=== PATIENT | female | born 1965 | race Caucasian/White ===

== ENCOUNTER 2024-04-02 10:34 | Observation (INO) ==
[2024-04-02 12:23] LABS: ABS Eosinophils 0.3 10^3/uL (0.0-0.5); ABS Monocytes 0.4 10^3/uL (0.0-0.9); ABS Neutrophils 4.8 10^3/uL (1.5-7.6); ABS Nucleated RBC 0.01 10^3/ul; Hemoglobin 10.7 g/dL (11.5-14.3); Lymphocyte % 14.9 %; Mean Corpuscular Hemoglobin 27.1 pg (27-33); Mean Corpuscular Hgb Conc 32.4 g/dL (31-36); Mean Corpuscular Volume 83.8 fL (80-97); Mean Platelet Volume 9.2 fL (7.5-11.2); Nucleated Red Blood Cells % 0.1 %/100WBC (0.0-0.8); Platelet Count 197 10^3/uL (150-450); Red Blood Count 3.94 10^6/uL (3.63-4.92); Red Cell Distribution Width 15.1 % (12-17); White Blood Count 6.5 10^3/uL (3.8-11.8)
[2024-04-02] MEDS: Aspirin EC 81 mg TAB.EC (enteric coated) PO ONE (12:30)
[2024-04-02 12:43] LABS: Albumin 3.5 g/dL (3.2-5.2); Albumin/Globulin Ratio 1.3 (1-3); Calcium 8.5 mg/dL (8.6-10.3); Creatinine, Serum 1.03 mg/dL (0.51-0.95); Direct Bilirubin 0.1 mg/dL (0.03-0.18); Globulin 2.6 g/dL (2-4); HDL Cholesterol 40.6 mg/dL; Indirect Bilirubin 0.3 mg/dL (0.3-1.0); Potassium 4.4 mmol/L (3.5-5.0); Total Bilirubin 0.4 mg/dL (0.2-1.0); Total Protein 6.1 g/dL (6.4-8.9); eGFR CKD-EPI 62.2 (>60)
[2024-04-02 14:52] LABS: Urine Appearance Clear; Urine Bilirubin Negative (Negative); Urine Blood Negative (Negative); Urine Color Colorless; Urine Glucose Negative (Negative); Urine Ketones Negative (Negative); Urine Nitrite Negative (Negative); Urine Protein Negative (Negative); Urine Specific Gravity 1.023 (1.002-1.030); Urine Urobilinogen Negative (Negative)
[2024-04-02 15:37] LABS: INR 0.97 (0.85-1.14)
[2024-04-02] MEDS: Morphine 4 MG/ML VIAL (1 ml) IV ONE (15:47)
[2024-04-02] MEDS ORDERED: Dextrose 50% Syringe 50 ml 25 GM/50 ML SYRINGE IV PUSH PRN (17:58)
[2024-04-02] MEDS: Enoxaparin 40 MG/0.4 ML SYR SUBCUT SCH (20:57)
[2024-04-02] MEDS: Insulin GLARGINE 100 un/ml 10 ml VIAL SUBCUT SCH (21:46)
[2024-04-03] MEDS: Aspirin EC 81 mg TAB.EC (enteric coated) PO SCH (08:52)
[2024-04-03] MEDS: Psyllium PAK PO SCH (08:54)
[2024-04-04 09:46] VITALS: BP 140/72
== END 2024-04-04 14:00 | disposition home or self-care (01) ==
LOC: ED 10:34 → EDHOLD 10:34 → MEDTELE 19:59
PROVIDERS: ADMIT Hospitalist; ATTEND Hospitalist